=== PATIENT | female | born 1995 | race Caucasian/White ===

== ENCOUNTER 2022-05-19 15:05 | Emergency (ER) | payer OTHER ==
[2022-05-19 15:09] VITALS: TEMP 97.6
[2022-05-19] MEDS ORDERED: AMOXIC-POT CLAV 875-125MG 1 EACH TAB PO STA (15:15)
[2022-05-19] MEDS ORDERED: DIPH,PERTUS(ACELL)TETVAC-LF 0.5 ML VIAL IM ONE (15:34)
[2022-05-19] MEDS ORDERED: KETOROLAC 15 MG/ML 1 ML VIAL IM STA (15:34)
--- NOTE | 2022-05-19 15:54 | XR ---
EXAMINATION TYPE: XR femur RT DATE OF EXAM: 05/19/2022 COMPARISON: NONE HISTORY: Dog bite TECHNIQUE: 4 views FINDINGS: No fracture nor dislocation. Hip joint and knee joint appear intact. There is extensive sof t tissue air on the lateral aspect of the mid right femur. IMPRESSION: Soft tissue air consistent with laceration. No fracture seen.
[2022-05-19] MEDS ORDERED: LIDOCAINE 1% INJ 10MG/ML (30 ML VIAL-PF) SQ ONE (16:23)
--- NOTE | 2022-05-19 17:26 | ED ---
Animal Bite HPI - General Chief Complaint: Animal Bite Stated Complaint: dog bite rt thigh Time Seen by Provider: 05/19/22 15:15 Source: patient Mode of arrival: wheelchair - History of Present Illness Initial Comments: Patient is a 26-year-old female who presents to the emergency department for dog bite. Patient was bit by her mother's dog today. Dog up-to-date on vaccination s, no concern for rabies. Patient has several deep puncture wounds to the right thigh. She presented to urgent care who sent her to the emergency department. - Related Data Previous Rx's Medication Instructions Recorded Amoxic-Pot Clav 875-125Mg 1 tab PO Q12HR 14 Days #28 tab 05/19/22 [Augmentin 875-125] HYDROcodone/APAP 7.5-325MG [Independence 1 tab PO Q4HR PRN 3 Days #18 tab 05/19/22 7.5-325] Ibuprofen [Motrin] 800 mg PO Q8HR PRN #30 tab 05/19/22 Ondansetron Odt [Zofran Odt] 4 mg PO Q8HR PRN #10 tab 05/19/22 Allergies Allergy/AdvReac Type Severity Reaction Status Date / Time No Known Allergies Allergy Verified 05/19/22 15:09 Review of Systems ROS Statement: Those systems with pertinent positive or pertinent negative responses have been documented in the HPI. ROS Other: All systems not noted in ROS Statement are negative. Past Medical History Past Medical History: No Reported History History of Any Multi-Drug Resistant Organisms: None Reported Past Surgical History: No Surgical Hx Reported Past Psychological History: No Psychological Hx Reported Smoking Status: Never smoker Past Alcohol Use History: Occasional Past Drug Use History: None Reported General Exam General appearance: alert, in no apparent distress Respiratory exam: Present: normal lung sounds bilaterally. Absent: respiratory distress, wheezes, rales, rhonchi, stridor Cardiovascular Exam: Present: regular rate, normal rhythm, normal heart sounds. Absent: systolic murmur, diastolic murmur, rubs, gallop, clicks Extremities exam: Present: other (6 puncture wounds to right thigh ) Neurological exam: Present: alert, oriented X3, CN II-XII intact Psychiatric exam: Present: normal affect, normal mood Skin exam: Present: warm, dry, intact, normal color. Absent: rash Course Vital Signs 05/19/22 05/19/22 15:06 17:45 Temperature 97.6 F Pulse Rate 101 H 97 Respiratory 16 18 Rate Blood Pressure 100/68 104/78 O2 Sat by Pulse 99 97 Oximetry Procedures - Laceration Laceration #1 Indication: laceration Site: lower extremity Size (cm): 3 Depth: simple, single layer Anesthetic Used: lidocaine 1% Anesthesia Technique: local infiltration Pre-repair: wound explored, deep structures intact Type of Sutures: nylon Size of Sutures: 4-0 Number of Sutures: 3 Technique: simple, interrupted Patient Tolerated Procedure: well, no complications Laceration #2 Consent Obtained: verbal consent Indication: laceration Site: lower extremity Size (cm): 2 Description: linear, irregular Anesthetic Used: lidocaine 1% Anesthesia Technique: local infiltration Pre-repair: wound explored, irrigated extensively Type of Sutures: nylon Size of Sutures: 4-0 Number of Sutures: 2 Patient Tolerated Procedure: well, no complications Medical Decision Making - Medical Decision Making Was pt. sent in by a medical professional or institution (, PA, DIGITAL FORENSIC EXAMINER, urgent care, hospital, or [facility]...) When possible be specific @ -[No] Did you speak to anyone other than the patient for history (EMS, parent, family, police, friend...)? What history was obtained from this source @ -[No] Did you review nursing and triage notes (agree or disagree)? Why? @ -[I reviewed and agree with nursing and triage notes] Were old charts reviewed (outside hosp., previous admission, EMS record, old EKG, old radiological studies, urgent care reports/EKG's, [facility] records)? Report findings @ -[No old charts were reviewed] Differential Diagnosis (chest pain, altered mental status, abdominal pain women, abdominal pain men, vaginal bleeding, weakness, fever, dyspnea, syncope, headache, dizziness, GI bleed, back pain, seizure, CVA, palpatations, mental health)? @ -[not applicable] EKG interpreted by me (3pts min.). @ -[As above] X-rays interpreted by me (1pt min.). @ -Yes, right thigh x-ray negative for fracture CT interpreted by me (1pt min.). @ -[None done] U/S interpreted by me (1pt. min.). @ -[None done] What testing was considered but not performed or refused? (CT, X-rays, U/S, labs)? Why? @ -[None] What meds were considered but not given or refused? Why? @ -[None] Did you discuss the management of the patient with other professionals (professionals i.e. , PA, DIGITAL FORENSIC EXAMINER, lab, RT, psych nurse, long term care social worker, steel crane operator, teacher, field crop technical officer, social work case manager)? Give summary @ -[No] Was smoking cessation discussed for >3mins.? @ -[No] Was critical care preformed (if so, how long)? @ -[No] Were there social determinants of health that impacted care today? How? (Homelessness, low income, unemployed, alcoholism, drug addiction, transportation, low edu. Level, literacy, decrease access to med. care, [facility], rehab)? @ -[No] Was there de-escalation of care discussed even if they declined (Discuss DNR or withdrawal of care, Hospice)? DNR status @ -[No] What co-morbidities impacted this encounter? (DM, HTN, Smoking, COPD, CAD, Cancer, CVA, ARF, Chemo, Hep., AIDS, mental health diagnosis, sleep apnea, morbid obesity)? @ -[None] Was patient admitted / discharged? Hospital course, mention meds given and route, prescriptions, significant lab abnormalities, going to OR and other pertinent info. @ -Discharged. Puncture wounds irrigated extensively. 2 of 6 wounds required closure due to loss of thigh integrity and consistent drainage. There is no vasculature or muscular involvement. There were closed loosely. Tetanus updated. Patient placed on Augmentin. We discussed very strict return parameters. Patient will sent home with short course of Independence for severe pain. Wound care discussed in detail Undiagnosed new problem with uncertain prognosis? @ -[No] Drug Therapy requiring intensive monitoring for toxicity (Heparin, Nitro, Insulin, Cardizem)? @ -[No] Were any procedures done? @ -Yes, laceration repair Diagnosis/symptom? @ -Dog bite Acute, or Chronic, or Acute on Chronic? @ -Acute Uncomplicated (without systemic symptoms) or Complicated (systemic symptoms)? @ Uncomplicated Side effects of treatment? @ -[No] Exacerbation, Progression, or Severe Exacerbation? @ -[No] Poses a threat to life or bodily function? How? (Chest pain, USA, CT, pneumonia, PE, COPD, DKA, ARF, appy, cholecystitis, CVA, Diverticulitis, Homicidal, Suicidal, threat to staff... and all critical care pts) @ -[No] Dr. Corral is my attending Disposition Clinical Impression: Dog bite Disposition: HOME SELF-CARE Instructions (If sedation given, give patient instructions): Animal Bite (ED), Care For Your Stitches (ED), Laceration (ED) Additional Instructions: Keep dressing on until the morning and then after leave wound uncovered. Keep wound clean and dry. Wash with a mild soap. Take medication as directed. Follow-up with primary care provider in 1-2 days. Return for suture removal in 14 days. Report back to the emergency department if you experience new, co ncerning, or worsening symptoms. Prescriptions: Amoxic-Pot Clav 875-125Mg [Augmentin 875-125] 1 tab PO Q12HR 14 Days #28 tab Ibuprofen [Motrin] 800 mg PO Q8HR PRN #30 tab PRN Reason: Pain HYDROcodone/APAP 7.5-325MG [Independence 7.5-325] 1 tab PO Q4HR PRN 3 Days #18 tab PRN Reason: Pain Ondansetron Odt [Zofran Odt] 4 mg PO Q8HR PRN #10 tab PRN Reason: Nausea Is patient prescribed a controlled substance at d/c from ED?: No Referrals: None,Stated [Primary Care Provider] - 1-2 days Time of Disposition: 17:26
[2022-05-19 17:46] VITALS: BP 104/78; PULSE 97; RESP 18
== END 2022-05-19 17:50 | disposition home or self-care (01) ==
LOC: EC 15:05
DX: S71.131A Puncture wound without foreign body, right thigh, initial encounter (principal); Z23 Encounter for immunization; W54.0XXA Bitten by dog, initial encounter
CPT/HCPCS: 73552; 90715; 99283; 96372; 90471; 12002; J2001; J1885